=== PATIENT | female | born 1995 | race Caucasian/White ===

== ENCOUNTER 2020-09-19 14:07 | Emergency (ER) | payer OTHER ==
[~2020-09-19 14:07] MED LIST: BACTRIM DS TAB1 EACH PO
[2020-09-19] MEDS ORDERED: IBUPROFEN800 MG PO (16:34)
[2020-09-19] MEDS ORDERED: BACTRIM DS TAB1 EACH PO (16:34)
[2020-09-19] MEDS ORDERED: KEFLEX250 MG PO (16:34)
== END 2020-09-19 16:50 | disposition home or self-care (01) ==
LOC: FER 14:07
DX: L05.01 Pilonidal cyst with abscess (principal); Z98.890 Other specified postprocedural states
CPT/HCPCS: 99283